=== PATIENT | male | born 1990 | race Caucasian/White ===

== ENCOUNTER → 2021-02-15 10:07 | Outpatient (CLI) | payer OTHER, SELFPAY ==
--- NOTE | ~2021-02-15 | MR_ITS ---
EXAMINATION: MR lumbar spine wo con EXAM DATE: 02/15/2021 11:30 INDICATION: R52 - Pain, unspecified low back pain/weakness worsening, difficulty sitting. TECHNIQUE: Multi-sequential, multiplanar MR images of the lumbar spine were obtained without contrast . Sagittal T1, T2, T2 fat saturation images. Axial T2 weighted images. There is no prior study for comparison. FINDINGS: There is congenitally narrow L5-S1 disc height with superimposed mild to moderate disc dise ase at this level and at L4-5. The vertebral body and disc heights are otherwise well maintained. The vertebral bodies are aligned in the AP dimension. The conus medullaris terminates at the L1/2 level and has normal signal intensity and morphology. Surgical changes from right hemilaminotomy and possi ble discectomy at L5-S1. Paraspinal soft tissue is unremarkable. Level by level evaluation: T12-L1: Disc does not extend beyond the endplate margin. Facet arthropathy: None. Neural foraminal stenosis: No stenosis. Central canal stenosis: No stenosis. L1-L2: Disc does not extend beyond the endplate margin. Facet arthropathy: None. Neural foraminal stenosis: No stenosis. Central canal stenosis: No stenosis. L2-L3: Disc does not extend beyond the endplate margin. Facet arthropathy: Mild. Neural foraminal stenosis: No stenosis. Central canal stenosis: No stenosis. L3-L4: Disc does not extend beyond the endplate margin. Facet arthropathy: Mild. Neural foraminal stenosis: No stenosis. Central canal stenosis: No stenosis. L4-L5: There is a mild diffuse disc bulge. Facet arthropathy: Mild. Neural foraminal stenosis: Mild bilateral. Central canal stenosis: Mild. L5-S1: There is a mild to moderate diffuse disc bulge with superimposed right central moderate-sized extrusion into the lateral recess, some mass effect on traversing S1 nerve root. Facet arthropathy: Mild bilateral. Neural foraminal stenosis: Mild to moderate left, mild right. Central canal stenosis: Moderate right lateral recess. IMPRESSION: L5-S1 surgical changes, right central extrusion causing moderate lateral recess stenosis Reviewed, dictated and finalized at location A. NCT BUSINESS INSTRUCTOR IMPRESSION: L5-S1 surgical changes, right central extrusion causing moderate la teral recess stenosis
== END ==
PROVIDERS: PCP Family Medicine; Visit Provider Family Medicine
DX: R52 Pain, unspecified (principal); M51.26 Other intervertebral disc displacement, lumbar region
CPT/HCPCS: 72148

== ENCOUNTER 2021-08-06 11:19 | Outpatient (CLI) | payer OTHER, SELFPAY ==
--- NOTE | ~2021-08-06 | XR_ITS ---
EXAM: XR lumbar spine min 4V HISTORY: M48.00 - Spinal stenosis, site unspecified LOW BACK PAIN . COMPARISON: None available. FINDINGS: 5 nonrib-bearing lumbar-type vertebral bodies. Pedicles intact. Normal vertebral body alig nment. Vertebral body heights preserved. Mild disc space narrowing at L4-5 and L5-S1. Mild sclerosis of the lower lumbar facets. No pars defect. IMPRESSION: Mild degenerative disc disease and facet arthropathy at L4-5 and L5-S1. Reviewed, dictated and finalized at location K. IMPRESSION: Mild degenerative disc disease and facet arthropathy at L4-5 and L5 -S1.
== END 2021-08-06 11:20 | disposition home or self-care (01) ==
PROVIDERS: PCP Family Medicine; Visit Provider Nurse Practitioner Gerontology
DX: M48.00 Spinal stenosis, site unspecified (principal); R52 Pain, unspecified; M51.36 Other intervertebral disc degeneration, lumbar region; M51.37 Other intervertebral disc degeneration, lumbosacral region
CPT/HCPCS: 72110

== ENCOUNTER 2021-09-26 12:26 | Outpatient (CLI) | payer OTHER, SELFPAY ==
--- NOTE | ~2021-09-26 | MR_ITS ---
EXAMINATION: MR lumbar spine wo con DATE: 09/26/2021 13:04 INDICATION: Lower back pain. TECHNIQUE: Magnetic resonance imaging (MRI) of the lumbar spine was performed without intravenous con trast. Sequences included sagittal T2-weighted FSE, sagittal T2-weighted FS FSE, sagittal T1-weighted FSE, and axial T2-weighted FSE. COMPARISON: None FINDINGS: 2 mm retrolisthesis L5 on S1. Alignment is otherwise normal. Vertebral body heights are normal. Moder ate disc height loss and annular fissures at both L4-L5 and L5-S1. Associated fibrofatty and fibrovas cular degenerative endplate changes, mild at L4-L5 and minimally at L5-S1. Remaining discs are normal . Postoperative change of a right hemilaminotomy at L5-S1. The conus medullaris terminates at L1-L2. There is normal signal in the caudal spinal cord. Paravertebral soft tissues are unremarkable. The fo llowing disc levels are specifically discussed: L1-L2: The disc does not extend beyond the endplate margin. There is mild bilateral facet joint osteo arthritis. There is no neural foraminal stenosis. There is no central canal stenosis. L2-L3: Disc is minimally bulging. There is mild bilateral facet joint osteoarthritis. There is mild b ilateral neural foraminal stenosis. There is no central canal stenosis. L3-L4: Disc is minimally bulging. There is moderate bilateral facet joint osteoarthritis. There is mi ld left and minimal right neural foraminal stenosis. There is no central canal stenosis. L4-L5: Mild disc protrusions at the bilateral foraminal zones. There is mild bilateral facet joint os teoarthritis. There is mild bilateral neural foraminal stenosis. There is no central canal stenosis. L5-S1: Disc is mildly bulging. Annular fissure and right paracentral to right foraminal zone disc ext rusion which measures 1.5 cm medial to lateral, 8 mm anteroposteriorly and 1.3 similar craniocaudally . This severely narrows the right lateral recess exerting mass effect upon the traversing right S1 ne rve root and results in the overall mild central canal stenosis, severe on the right with only minima l stenosis to the left of midline. There is mild bilateral facet joint osteoarthritis. There is moder ate bilateral neural foraminal stenosis. IMPRESSION: 1. Moderate lower lumbar spondylosis with annular fissure and 1.5 x 1.3 x 0.8 cm right paracentral to foraminal zone disc extrusion at L5-S1 which severely narrows the lateral recess directly below the site of a prior right hemilaminotomy. Reviewed, dictated and finalized at location A. IMPRESSION: 1. Moderate lower lumbar spondylosis with annular fissure and 1.5 x 1.3 x 0.8 c m right paracentral to foraminal zone disc extrusion at L5-S1 which severely na rrows the lateral recess directly below the site of a prior right hemilaminotom yDarline
== END 2021-09-26 12:27 | disposition home or self-care (01) ==
LOC: ANHIMG 12:33
PROVIDERS: PCP Family Medicine; Visit Provider Family Medicine
DX: M47.27 Other spondylosis with radiculopathy, lumbosacral region (principal); M48.00 Spinal stenosis, site unspecified
CPT/HCPCS: 72148

== ENCOUNTER 2021-12-08 10:59 | Outpatient (CLI) | payer OTHER, SELFPAY ==
--- NOTE | ~2021-12-08 | MR_ITS ---
EXAMINATION: MR lumbar spine wo/w con DATE: 12/08/2021 10:53 INDICATION: Numbness and tingling in the legs. TECHNIQUE: Magnetic resonance imaging (MRI) of the lumbar spine was performed without and with 20 mL MultiHance intravenous contrast. COMPARISON: Lumbar spine MRI 09/26/2021, 02/15/21 FINDINGS: Bone alignment is normal. There is mild chronic anterior wedging of T12 vertebral body. The re is moderately decreased disc height at L4-L5 and L5-S1. The distal spinal cord signal intensity is normal. The conus medullaris is at L1. The following disc levels are specifically discussed: L1-L2: The disc does not extend beyond the endplate margin. There is mild bilateral facet joint osteo arthritis. There is no neural foraminal stenosis. There is no central canal stenosis. L2-L3: The disc does not extend beyond the endplate margin. There is mild bilateral facet joint osteo arthritis. There is no neural foraminal stenosis. There is no central canal stenosis. L3-L4: The disc does not extend beyond the endplate margin. There is mild bilateral facet joint osteo arthritis. There is no neural foraminal stenosis. There is no central canal stenosis. L4-L5: The disc is bulging and has an annular fissure. There is mild bilateral facet joint osteoarthr itis. There is mild bilateral neural foraminal stenosis. There is no central canal stenosis. L5-S1: The disc is bulging with superimposed small right subarticular zone extrusion. There is enhanc ing granulation tissue throughout the epidural space on the right. There is mild bilateral facet join t osteoarthritis. There is mild bilateral neural foraminal stenosis. There is mild central canal sten osis. There are changes of right hemilaminotomy. IMPRESSION: 1. Moderate lower lumbar spondylosis. Reviewed, dictated and finalized at location A.
== END 2021-12-08 11:00 | disposition home or self-care (01) ==
PROVIDERS: PCP Family Medicine; Visit Provider Neurological Surgery
DX: M47.27 Other spondylosis with radiculopathy, lumbosacral region (principal); M48.00 Spinal stenosis, site unspecified; M51.26 Other intervertebral disc displacement, lumbar region; M47.896 Other spondylosis, lumbar region
CPT/HCPCS: 72158; A9577

== ENCOUNTER 2021-12-10 10:13 | Outpatient (CLI) | payer OTHER, SELFPAY ==
[2021-12-10 10:56] LABS: Basophils Absolute Auto 0.1 K/mm3 (0.0-0.1); Eosinophils Absolute Auto 0.3 K/mm3 (0-0.3); Eosinophils Percent Auto 5.2 % (0-4.4); Hematocrit 44.8 % (42.0-52.0); Hemoglobin 14.7 g/dL (14.0-18.0); Immature Granulocyte Absolute 0.02 K/mm3 (0.00-0.031); Immature Granulocyte Percent A 0.3 % (0-0.5); Lymphocytes Absolute Auto 1.59 K/mm3 (0.9-3.2); Lymphocytes Percent Auto 27.3 % (18.3-44.2); Mean Corpuscular HGB Conc 32.8 g/dl (32-36); Mean Corpuscular Hemoglobin 30.8 pg (26-34); Mean Corpuscular Volume 93.9 fl (80-100); Mean Platelet Volume 10.3 fl (7.4-10.4); Monocytes Absolute Auto 0.8 K/mm3 (0.1-0.6); Monocytes Percent Auto 13.2 % (2.6-8.5); Neutrophils Absolute Auto 3.1 K/mm3 (1.3-6.7); Platelet Count Result 235 k/mm3 (150-375); Red Blood Count 4.77 M/mm3 (4.6-6.20); Red Cell Distribution Width 11.3 % (11.5-14.5); White Blood Count 5.8 K/mm3 (4.5-10.0)
[2021-12-10 11:14] LABS: Alanine Aminotransferase 39 U/L (6-50); Albumin Level 4.8 g/dL (3.5-5.1); Alkaline Phosphatase 62 U/L (38-126); Anion Gap 12 mmol/L (8-16); Aspartate Amino Transferase 40 U/L (17-59); Bilirubin,Total 0.5 mg/dL (0.2-1.3); Blood Urea Nitrogen 16 mg/dL (9-20); Carbon Dioxide 27 mmol/L (22-30); Chloride 101 mmol/L (98-107); Estimated Glomerular Filt Rate > 60; Glucose 100 mg/dL (65-110); Potassium 4.4 mmol/L (3.4-5.0); Sodium 140 mmol/L (137-145)
== END 2021-12-10 10:14 | disposition home or self-care (01) ==
LOC: ANHLAB 10:15
PROVIDERS: PCP Family Medicine; Visit Provider Neurological Surgery
DX: Z01.818 Encounter for other preprocedural examination (principal)
CPT/HCPCS: 36415; 80053; 85025

== ENCOUNTER 2021-12-25 01:36 | Day surgery (SDC) | payer OTHER, SELFPAY ==
[2021-12-22 12:28] VITALS: BMI 28.8
--- NOTE | 2021-12-22 12:39 | PC.NURSE ---
Report to the Outpatient Waiting Room, entrance under the green pavilion located off [facility], at time 0600 on date 12/25/21. OR Time: 0730. Time changes happen often and if your time is changed the preop area will call you the afternoon before. - You and your visitor will be asked to self-screen and do not enter if you have any COVID symptoms. - Only one visitor and NO children visitors are allowed at this time. - The patient visitor is requested to leave or wait in car when not with patient due to restrictions. - A mask is required within the hospital. Patients may have clear liquids (water, carbonated beverages, clear teas, apple juice) until 3 hours prior to surgery with a maximum of 20 ounces. - No food from midnight until time of surgery Take the following medications with a SIP of water the morning of surgery: TYLENOL IF NEEDED Medications to discontinue per physician: IBUPROFEN Date to take last dose: PER DR. BAIRES (PT HAS ALREADY STOPPED) Please no make-up, nail bulgarian, hairspray, perfume, deodorant, or body powder the day of surgery. No jewelry (including any body piercings) or valuables the day of surgery, leave them at home. Please take a shower or bath the night before, or the morning of, surgery with an antibacterial soap. Wear comfortable, loose fitting clothing. - Jewelry must be removed prior to entering the operating room. Rings and piercings that are not removed may be cut off. - The hospital will not accept responsibility for valuables. - Please leave all valuables, including medications, at home the day of surgery. If you are going home after surgery, a licensed customer service driver must drive you home. - NO public transportation without another adult. - We recommend that an adult stay with you for 24 hours following discharge. - We also recommend that you do not drive, make important decision, drink alcoholic beverages, or take any drugs that were not prescribed by your health care provider for at least 24 hours after your discharge time. Follow any additional instructions given to you from your surgeon. If you or anyone in your household have experienced Covid symptoms in the past week, please notify your surgeon or the nurse liaison at the phone number below for possible testing. Telephone instructions given to PT - TANIA RUBIO and asked if any additional questions and then verbalized understanding. Patient advised to call surgeon office or pre surgery nurse liaison [phone] if any additional questions.
[2021-12-25] VITALS (10 sets, daily range): BP systolic 96–144; BP diastolic 67–106; PULSE 61–78; RESP 12–18; TEMP 36.3–36.4; O2SAT 99–100
--- NOTE | ~2021-12-25 | XR_ITS ---
EXAMINATION: XR fluoroscopy no charge DATE: 12/25/2021 08:39 INDICATION: L5-S1 laminectomy TECHNIQUE: 2 fluoroscopic images of the lumbosacral spine were obtained during procedure performed by Dr. Acevedo. Radiologist was not present for the imaging or procedure. The amount of fluoroscopy ti me used during this procedure was 0.1 minutes. COMPARISON: None. FINDINGS: Images demonstrate the needle for marking initially projecting over the L5 spinous processes. Subsequ ently soft tissue retractors and lap sponge projects over the soft tissues posterior to the upper sac rum with a metal probe projecting over the L5 spinous process. IMPRESSION: 1. Fluoroscopy utilized during surgical procedure the lumbosacral junction. See procedure note for fu rther detail. Reviewed, dictated and finalized at location A. IMPRESSION: 1. Fluoroscopy utilized during surgical procedure the lumbosacral junction. See procedure note for further detail.
--- NOTE | 2021-12-25 07:09 | WPDANESEPPF ---
Anes - Initial Pre Proc Eval Procedure: Operation Date: 12/25/21 07:30 Proposed Procedures p Right L5 S1 Laminectomy with Microdiscectomy - Cipriano Acevedo M.D. Date/Time: 12/25/21 07:09 Surgeon: Cipriano Acevedo M.D. Pre Op Diagnosis: L5 S1 Disc Herniation Patient Data Age: 31 Gender: M Height: 1.88 m Weight: 109.1 kg Last Vital Signs Temp 36.4 C L 12/25/21 06:21 Pulse 61 12/25/21 06:21 Resp 16 12/25/21 06:21 BP 140/74 12/25/21 06:21 Pulse Ox 100 12/25/21 06:21 O2 Del Method Room Air 12/25/21 06:21 Allergies Allergy/AdvReac Type Severity Reaction Status Date / Time No Known Allergies Allergy Verified 12/25/21 06:08 Home Medications Medication Instructions Recorded Confirmed Type pregabalin 50 mg capsule (Lyrica) 50 mg PO TID #90 caps 09/19/21 12/25/21 Rx tizanidine 2 mg tablet 2 mg PO TID PRN muscle spasticity 09/19/21 12/25/21 Rx #90 tabs tramadol 50 mg tablet 50 mg PO Q6H PRN pain #60 tabs 09/19/21 12/25/21 Rx acetaminophen 500 mg tablet 1,000 mg PO DAILY PRN Pain 12/22/21 12/25/21 History ibuprofen 600 mg tablet 600 mg PO QID PRN Pain 12/22/21 12/25/21 History Patient hx anesthesia problems: other (motion sickness) Family hx anesthesia problems: none Results Review: All pre-operative results and documents have been reviewed as part of the pre-operative evaluation. [facility] Past Medical History Medical History Herniation of intervertebral disc between L5 and S1 Other spondylosis with radiculopathy, lumbar region Sciatica Surgical History Surgical History H/O lumbar discectomy Social History Social History Social History: Single Smoking status: Never smoker Second hand tobacco smoke exposure: No Alcohol intake: current Drinks per week: 10 Alcohol use details: WEEKENDS Substance use: never Substance use type: does not use Living arrangements: with friend(s) Additional occupation/education comments: Short Term Disability Gender identity (if verbalized by the patient): Male Sexual Orientation (if Verbalized by the Patient): Straight or Heterosexual Spiritual care concerns: No Anes - Eval Final PreProcedure Day of Procedure 12/25/21 07:09 Patient weight: obese Heart: regular rate and rhythm Lungs: clear to auscultation Airway: Mallampati scale class II Neurological: alert and oriented Last oral intake: >/= 8 hours ASA classification: III Emergent: no Anesthetic plan: proceed Anesthesia type and monitoring: general ETT and standard monitoring Results Review: All pre-operative results and documents have been reviewed as part of the pre-operative evaluation. Informed Consent: The patient's anesthetic plan and its attendant risks and benefits were discussed with the patient/family/POA. Questions were solicited and answers provided to the satisfaction of the patient/family/POA.
[2021-12-25] MEDS: LACTATED RINGERS 1,000 ML 30 ML IV CONT ×2 (07:16→10:01)
--- NOTE | 2021-12-25 07:24 | PM.IMHP ---
H&P: HPI History of Present Illness Date/Time: 12/25/21 07:24 Chief Complaint: The patient is a 31-year-old gentleman who presents with right lower extremity pain and weakness. He had all right L5-S1 laminectomy and microdiskectomy in the past. After a this band volleyball incident he developed recurrence and severe pain in the right low back and leg. His imaging reveals a recurrent disc herniation with mass effect on his S1 nerve root. He now presents for elective surgery. Review of Systems Review of Systems: Review of systems is otherwise unremarkable. He has not had recent problems with fevers, chills, sweats, weight change, chest pain, shortness of breath, abdominal pain, nausea, vomiting, diarrhea, blood in the stool or urine. [facility] Past Medical History Medical History Herniation of intervertebral disc between L5 and S1 Other spondylosis with radiculopathy, lumbar region Sciatica Surgical History Surgical History H/O lumbar discectomy Social History Social History Social History: Single Smoking status: Never smoker Second hand tobacco smoke exposure: No Alcohol intake: current Drinks per week: 10 Alcohol use details: WEEKENDS Substance use: never Substance use type: does not use Living arrangements: with friend(s) Additional occupation/education comments: Short Term Disability Gender identity (if verbalized by the patient): Male Sexual Orientation (if Verbalized by the Patient): Straight or Heterosexual Spiritual care concerns: No Meds Home Medications and Allergies Home Medications Medication Instructions Recorded Confirmed Type pregabalin 50 mg capsule (Lyrica) 50 mg PO TID #90 caps 09/19/21 12/25/21 Rx tizanidine 2 mg tablet 2 mg PO TID PRN muscle spasticity 09/19/21 12/25/21 Rx #90 tabs tramadol 50 mg tablet 50 mg PO Q6H PRN pain #60 tabs 09/19/21 12/25/21 Rx acetaminophen 500 mg tablet 1,000 mg PO DAILY PRN Pain 12/22/21 12/25/21 History ibuprofen 600 mg tablet 600 mg PO QID PRN Pain 12/22/21 12/25/21 History Allergies Allergy/AdvReac Type Severity Reaction Status Date / Time No Known Allergies Allergy Verified 12/25/21 06:08 Vital Signs Vital Signs - 24 hr 12/25/21 06:21 Temperature 97.5 F L Pulse Rate 61 Respiratory Rate 16 Blood Pressure 140/74 Pulse Oximetry 100 Oxygen Delivery Room Air Exam Const: General: comfortable and no acute distress Eyes: General: appearance normal, both eyes and all related structures Resp: Effort & Inspection: normal respiratory effort Auscultation: clear to auscultation bilaterally Cardio: Rate: regular rate GI: GI Palp: Yes Soft to palpation Skin: General skin exam: normal color Neuro: Other: His gait is slightly antalgic favoring the right side. His deep tendon reflexes diminished in the right ankle compared to the left. Motor examination reveals slight weakness in the right gastrocnemius noticeable when doing heel raises on that side. Sensation is intact to light touch. Extrem: General: normal to inspection Assessment and Plan Assessment and plan (1) Lumbar disc herniation: Code(s): M51.26 - Other intervertebral disc displacement, lumbar region Status: Acute Assessment and Plan: Assessment: The patient presents at this time with recurrent right S1 radiculopathy secondary to a disc herniation. Plan Plan: The patient has elected to proceed with a redo right L5-S1 laminectomy and microdiskectomy. We reviewed the nature of the surgery and the risks and he wishes to proceed.
--- NOTE | 2021-12-25 07:31 | WPDHPUPDATE1 ---
History and Physical Update Update Date/Time: 12/25/21 07:31 History and Physical has been reviewed, including an updated exam of the patient. There are NO changes in the patient's condition. Risks, benefits, and alternatives have been discussed and questions answered. Patient agrees to proceed with procedure.
[2021-12-25] MEDS: ceFAZolin 2 GM/D5W 50 ML 2 GM/50 ML BAG IVPB (07:39)
[2021-12-25] MEDS: BUPIVACAINE/EPINEPHRINE 0.25% 50 ML VIAL 30 ML INFILTRATE (08:15)
--- NOTE | 2021-12-25 09:58 | W.PM.PROC2 ---
Procedure Note - Detailed Date of Procedure 12/25/21 Pre-op Diagnosis L5 S1 Disc Herniation Post-op Diagnosis Same Procedure Performed Redo right L5-S1 laminectomy and microdiskectomy Surgeon Cipriano Acevedo M.D. Anesthesia General Indications The patient presents with a recurrent right S1 radiculopathy secondary to a recurrent L5-S1 disc herniation. The risks were discussed and he wishes to proceed with surgery. Findings Small recurrent disc herniation and scar. Description of Procedure The patient was taken to the operating room in the supine position underwent smoothly induced general anesthesia via endotracheal tube. Total sequential stockings were placed. 2 g of IV Ancef were administered. The patient was turned prone onto the operating room table and a Tan frame. Pressure points were carefully checked and padded. The region of the incision was scrubbed with chlorhexidine and wiped with alcohol. A spinal needle was placed and an x-ray obtained for skin incision localization. The needle was removed the back was prepped and draped in usual fashion. The area of incision was infiltrated with 20 cc of 0.25% Marcaine with [id number] epinephrine. A midline vertical incision was made centered over the L5-S1 level. The dissection was carried down to the lumbodorsal fascia which was divided lateral to the midline and tagged with suture. Paraspinous muscle was reflected laterally. The lamina were defined using curettes. A [place] 4 was positioned and an x-ray obtained confirming the level. A self-retaining retractor was applied. The inferior border of the superior lamina and the superior border of the inferior lamina were thinned using a drill and removed using a Kerrison punch. The operative microscope was then brought in the field for microscopic dissection. The laminectomy was extended slightly up. The floor of the canal was identified on the lateral border thecal sac and nerve root were identified and mobilized medially. A nerve root retractor was applied and the root was retracted medially. The posterior longitudinal ligament was coagulated and opened sharply. Disc material was mobilized using nerve hooks in the syringe log handling equipment operator and removed. I could then easily palpate ventral to the thecal sac and the nerve root revealing no residual disc herniation or nerve root impingement. I encountered scar throughout the dissection which was readily mobilized using curettes. The wound was thoroughly irrigated with saline solution and inspected for hemostasis. The wound was closed in layers with 0 Vicryl in the lumbodorsal fascia, 2-0 Vicryl in Cornelia's layer, 3-0 Vicryl in the subcutaneous layer, and 4-0 Monocryl in a running subcuticular stitch in the skin. Steri-Strips and a sterile dressing were applied. The patient tolerated the procedure well. There were no complications. Estimated Blood Loss 10 IV Fluids 1,300 Complications None Condition Stable Disposition PACU [facility] Billing Surgery - Charge Forward: Surgery Billing
[2021-12-25] MEDS: fentaNYL CITRATE INJ (*CRX) 100 MCG/2 ML VIAL 25 MCG IV PUSH ×6 (10:33→11:09)
[2021-12-25] MEDS: HYDROmorphone HCL INJ (*CRX) 1 MG/ML SYR 0.5 MG IV PUSH ×2 (11:16→11:36)
[2021-12-25] MEDS: oxyCODONE HCL (*CRX) 5 MG TAB IR PO (12:12)
== END 2021-12-25 13:06 | disposition home or self-care (01) ==
PROVIDERS: PCP Family Medicine; Visit Provider Neurological Surgery
PROC: (CPT 63005; principal; 2021-12-25 07:30)
DX: M51.16 Intervertebral disc disorders with radiculopathy, lumbar region (principal); M47.26 Other spondylosis with radiculopathy, lumbar region; E66.9 Obesity, unspecified; Z68.30 Body mass index [BMI] 30.0-30.9, adult
CPT/HCPCS: 63042; 36415; 80053; 85025; 86850; 86900; 86901; 99199; A9270; J0330; J0690; J1100; J1170; J2250; J2405; J2704; J3010; J7120